=== PATIENT | female | born 1935 | race Caucasian/White ===

== ENCOUNTER 2023-09-25 15:02 | Emergency (ER) | payer MEDICARE, SELFPAY ==
--- NOTE | ~2023-09-25 | XR_ITS ---
EXAMINATION: XR CHEST CLINICAL INFORMATION: Cough. COMPARISON: None available. TECHNIQUE: Frontal view of the chest was obtained. FINDINGS: The trachea is in normal anatomic position. Heart size is normal. There is calcific atherosclerotic disease of the aorta. There are bibasilar airspace opacities. There are increased interstitial markings throughout both lungs. No large pleural effusion or pneumothorax. No acute osseous abnormality. XR/XR chest 1V IMPRESSION: There are bibasilar opacities representing either atelectasis or pneumonia.
[2023-09-25 15:59] VITALS: BP 133/44; BP 140/50; PULSE 60; PULSE 61; RESP 18; TEMP 36.6; O2SAT 94; O2SAT 98; BMI 19.9
--- NOTE | 2023-09-25 16:17 | ED.URI ---
HPI - URI/Sore Throat General Chief Complaint: Upper Respiratory Symptoms Stated Complaint: COUGH X1 WEEK,DIARRHEA PER EMS Time Seen by Provider: 09/25/23 16:15 Source: patient Mode of arrival: EMS Limitations: altered mental status (Dementia) History of Present Illness HPI Narrative: 88-year-old female with a history of hypertension and dementia who lacks insight as to why she is here in the emergency department. According to the triage nursing note the patient was sent in from her nursing facility for evaluation of a productive cough x1 week and flu-like symptoms. Patient was negative for COVID at the facility. The facility also wants the patient to be evaluated for a month on her back. Patient is awake and alert, she was oriented to person but was not able to give me any information about how she has been feeling over the past week. Related Data Previous Rx's Medication Instructions Recorded amoxicillin 500 mg capsule 1,000 mg (2 x 500 mg) PO TID 5 09/25/23 days #30 caps doxycycline hyclate 100 mg tablet 100 mg PO Q12H 5 days #10 tabs 09/25/23 Allergies Allergy/AdvReac Type Severity Reaction Status Date / Time No Known Allergies Allergy Verified 09/25/23 15:59 Review of Systems Review of Systems: Yes Unobtainable due to mental status (Dementia) [facility] Past Medical History [facility] Narrative: Social history: Patient is a resident of [facility] in [place]. Social History Social History Unable to assess alcohol history related to: Unknown Smoked in Last 30 Days: No Use of substances other than those prescribed or required for medical reasons: No Advance Directives: No Advance Directives Information Provided: No Physical Exam Vital Signs: Vital Signs: Last Vital Signs Temp 98.3 F 09/25/23 16:50 Pulse 58 09/25/23 16:50 Resp 16 09/25/23 16:50 BP 138/49 L 09/25/23 16:50 Pulse Ox 98 09/25/23 16:50 O2 Del Method Room Air 09/25/23 16:50 BMI result Body Mass Index 19.9 Vital signs revealed low heart rate of 58 otherwise unremarkable and O2 saturation was 98% Exam: General: Awake, alert in no distress Head: Normocephalic, atraumatic EENT: PERRL, Lids normal, sclera normal, conjunctiva normal, nose normal , ears normal, throat without erythema or exudates Neck: Supple, no adenopathy Lung: breath sounds symmetric, no wheezing, rales or rhonchi Chest: symmetric movement, nontender Heart: regular rate and rhythm, normal S1, S2 no murmurs or rubs Abdomen: soft, non-tender, nondistended, normal bowel sounds Back: no vertebral tenderness, no CVAT Extremities: no deformities, moves all extremities symmetrically Skin: no rashes, no lesion, normal color and warmth Neuro: Awake, alert, oriented, normal speech, cranial nerves intact, moves all extremities symmetrically Psych: Pleasant, cooperative, does try to get off the stretcher and needs a one-to-one to redirect her keep her on the stretcher. Medical Decision Making Medical Decision Making [facility] Narrative: 88-year-old female with a history of hypertension and dementia who lacks insight as to why she is here in the emergency department sent from her facility for evaluation of cough x1 week and lump to her back. Vital signs were unremarkable with normal O2 saturation of 98% on room air. Her lung exam was unremarkable. Patient's lump on her back is consistent with a lipoma. Differential diagnosis: ?Includes but is not limited to pneumonia, bronchitis, viral URI, viral infection, COVID, RSV, influenza Following evaluation was ordered: Chest x-ray, COVID-19, influenza, RSV Patient was initially treated with the following: Amoxicillin 1000 mg orally, doxycycline 5 mg orally Course: 18:43 Patient's COVID-19, influenza, RSV Dictation patient's chest x-ray is increased interstitial markings with right lower lobe infiltrate consistent with atypical pneumonia. Patient will be treated with amoxicillin 1000 mg 3 times a day for 5 days and doxycycline 100 mg twice a day for 5 days. Patient needs no treatment for her lipoma. Patient will be discharged back to her care facility Admission/Observation Consideration of admission/observation: Escalation of care including admission/observation considered Lab Data [facility] Lab Attestation statement: I reviewed the patient's lab results. Labs: Lab Results 09/25/23 Range/Units 16:05 Influenza Type A (PCR) NEGATIVE (Negative) Influenza Type B (PCR) NEGATIVE (Negative) RSV RNA Qual (PCR) NEGATIVE (Negative) SARS-CoV-2 RNA (RT-PCR) NEGATIVE (Negative) Independent Interpretation I performed an independent interpretation of an: Plain X-Ray Interpretation: My interpretation patient's one-view chest x-ray is as follows: Increased interstitial markings bilaterally with right lower lobe infiltrate consistent with atypical pneumonia. Discharge Plan Discharge Clinical Impression: Atypical pneumonia Patient Disposition: Home, Self-Care Instructions: Community Acquired Pneumonia (ED), Lipoma (ED) Additional Instructions: Your COVID-19, influenza and RSV swabs were neck Your chest x-ray revealed increased interstitial infiltrates and possible infiltrate in the lower lung which is consistent with an atypical pneumonia Take amoxicillin 500 mg pills, 2 pills, every 6 hours (3 times a day) for 5 days. Take doxycycline 100 mg, 1 pill every 12 hours for 5 days The lump on your left lower back is a lipoma-this is a collection of fat and does not need any treatment Follow-up with your doctor in 2 days. Please return to the emergency department if your symptoms get worse or if you develop any symptoms that are concerning to you. Prescriptions: New amoxicillin 500 mg capsule 1,000 mg PO TID 5 Days Qty: 30 0RF doxycycline hyclate 100 mg tablet 100 mg PO Q12H 5 Days Qty: 10 0RF
[2023-09-25 16:47] LABS: Influenza A PCR NEGATIVE (Negative); Influenza B PCR NEGATIVE (Negative); Resp Syncy Virus RNA Qual PCR NEGATIVE (Negative); SARS COV2 PCR INHOUSE NEGATIVE (Negative)
--- NOTE | 2023-09-25 16:49 | PC.NURSE ---
pt alert to self only, vss, nasal swab performed, cxr to be performed, pt denies pain/discomfort- warm blankets and pillow provided for patient comfort, call davis within reach, will continue to monitor
[2023-09-25 16:50] VITALS: BP 138/49; PULSE 58; RESP 16; TEMP 36.8; O2SAT 98
--- NOTE | 2023-09-25 18:11 | PC.NURSE ---
this nurse called [facility] to give nurse to nurse report. The person who answered the phone (Shahnaz) stated there wasn't a nurse to give report to and they would let the floors RCAs know and we should eventually get a call back.
--- NOTE | 2023-09-25 18:18 | PC.NURSE ---
RN call back an RN called back, this nurse updated her and notified them that the patient would eventually discharge back to their facility- full report was given.
[2023-09-25] MEDS: Amoxicillin 500 MG CAPSULE 1000 MG PO (18:34)
[2023-09-25] MEDS: Doxycycline Monohydrate 100 MG CAPSULE PO (18:34)
[2023-09-25] MEDS: traZODone HCL 25 MG HALFTAB PO (18:35)
== END 2023-09-25 19:35 | disposition home or self-care (01) ==
PROVIDERS: Physician Assistant; Emergency Provider Emergency Medicine Emergency Medical Services
DX: J18.9 Pneumonia, unspecified organism (principal); I10 Essential (primary) hypertension; F03.90 Unspecified dementia, unspecified severity, without behavioral disturbance, psychotic disturbance, mood disturbance, and anxiety; Z11.52 Encounter for screening for COVID-19; Z20.828 Contact with and (suspected) exposure to other viral communicable diseases
CPT/HCPCS: 0241U; 71045; 99283; 99284

== ENCOUNTER 2023-09-30 13:16 | Emergency (ER) | payer MEDICARE, SELFPAY ==
--- NOTE | ~2023-09-30 | XR_ITS ---
EXAMINATION: XR CHEST CLINICAL INFORMATION: Cough. COMPARISON: Chest 09/25/2023 TECHNIQUE: Frontal view of the chest was obtained. FINDINGS: The lungs are somewhat expanded with patchy bibasilar opacities likely infiltrate and/or atelectasis. The upper lungs are relatively clear except for minimal atelectatic stranding left apex. Heart size and pulmonary vascularity is normal. No gross bony abnormality seen. XR/XR chest 1V IMPRESSION: 1. Patchy bibasilar opacities likely infiltrate and/or atelectasis. Similar findings were seen on previous study 09/25/2023. Consider noncontrast CT chest. 2. Minimal atelectatic stranding left apex.
--- NOTE | 2023-09-30 13:40 | ED.SOB ---
HPI - SOB/Dyspnea General Chief Complaint: General Medical Stated Complaint: LOW 02, NO APPETITE Source: patient, EMS and old records reviewed Mode of arrival: EMS Limitations: other (dementia) History of Present Illness HPI Narrative: 88 yo female with PMH of dementia and HTN from a memory unit just seen here CXR showed RLL infiltrate negative viral panel 98% on RA sent home on amoxicillin and doxycycline. She comes back here with c/o nothing. She states she is fine and feels okay other than asking for a blanket. Staff told EMS they thought she was confused more so today and her O2 was 90%. EMS suspects they read it wrong as her pulse ox was 90% and HR 95 and EMS obtained 95% on RA and 85-90 HR which was the opposite. She has not exhibitied dyspnea and has no complaints on arrival. MD elicited complaint: anxiety (a little nervous being here now) Pertinent past history: pneumonia Onset (ago): day(s) (feels better has no complaints) Context: recent illness Timing: now resolved Exacerbating factors: nothing Relieving factors: nothing Known history of: other Associated symptoms: denies other symptoms Treatment prior to arrival: none Related Data Previous Rx's Medication Instructions Recorded amoxicillin 500 mg capsule 1,000 mg (2 x 500 mg) PO TID 5 09/25/23 days #30 caps doxycycline hyclate 100 mg tablet 100 mg PO Q12H 5 days #10 tabs 09/25/23 Allergies Allergy/AdvReac Type Severity Reaction Status Date / Time No Known Allergies Allergy Verified 09/25/23 15:59 Review of Systems Review of Systems: ROS unable to be obtained due to cognitive impairment [facility] Past Medical History Attestation statement: The following information was validated with the patient. Source: old records reviewed Medical History Dementia HTN (hypertension) Social History Social History (Updated 09/30/23 @ 13:51 by Sherry Jackson DO) Unable to assess alcohol history related to: Unknown Patient Tobacco Use Status: Tobacco use Unknown Advance Directives: No Advance Directives Information Provided: Yes Physical Exam Vital Signs: Vital Signs: Last Vital Signs Temp 97.0 F 09/30/23 15:44 Pulse 58 09/30/23 15:44 Resp 16 09/30/23 15:44 BP 128/51 L 09/30/23 15:44 Pulse Ox 97 09/30/23 15:44 O2 Del Method Room Air 09/30/23 15:44 BMI result Body Mass Index 22.9 Appearance: Alert. confused but pleasant. No acute distress. Eyes: Pupils equal, round and reactive to light. ENT: Pharynx normal. Neck: Normal inspection. Neck supple. CVS: Normal heart rate and rhythm. Pulses normal. Respiratory: No respiratory distress. Breath sounds normal. Abdomen: Soft and non-tender. Skin: Skin warm and dry. Normal skin color. Normal skin turgor. Extremities: No lower extremity edema. No calf ttp Neuro: confused. No motor deficit. No sensory deficit. Medical Decision Making Medical Decision Making [facility] Narrative: 88 yo female with PMH of HTN, DM, recent RLL on sent out on amoxicillin and doxy she has no complaints EMS called for confusion and sat 90% but she was not hypoxic with them and concern for error mixing up HR and O2 sat at SNF. At this time she is not toxic, no complaints, no resp issues will need basic labs and repeat CXR. She has no focal deficits, no headaches, no abdominal pain on exam. Differential Diagnosis Differential Diagnoses: The differential diagnosis associated with the presentation includes dementia, error in pulse ox read, pneumonia Admission/Observation Consideration of admission/observation: Escalation of care including admission/observation considered labs reassuring VS stable, no hypoxia, can be DC home Lab Data [facility] Lab Attestation statement: I reviewed the patient's lab results. 09/30/23 15:38 09/30/23 15:38 Labs: Lab Results 09/30/23 Range/Units 15:38 WBC 8.1 (4.8-10.8) X10*3/uL RBC 3.79 L (4.20-5.50) X10*6/uL Hgb 11.1 L (12.0-16.0) g/dl Hct 33.6 L (37.0-47.0) % MCV 88.7 (80.0-98.0) fL MCH 29.3 (27.0-33.0) pg MCHC 33.0 (31.0-35.0) g/dl RDW 12.9 (11.0-16.0) % Plt Count 440 H (160-400) X10*3/uL MPV 9.2 L (9.4-12.3) fL Immature Gran % (Auto) 2.6 H (0.0-0.4) % Neut % (Auto) 63.5 (45-73) % Lymph % (Auto) 19.0 L (20-40) % Jerome % (Auto) 8.9 (2-11) % Eos % (Auto) 5.1 H (0-4) % Baso % (Auto) 0.9 (0-2) % Lymph # (Auto) 1.5 (1.2-4.9) X10*3/uL Jerome # (Auto) 0.7 (0.1-1.2) X10*3/uL Eos # (Auto) 0.4 (0.0-0.4) X10*3/uL Baso # (Auto) 0.1 (0.0-0.2) X10*3/uL Abs Immat Gran (auto) 0.21 H (0.00-0.03) X10*3/uL Absolute Neuts (auto) 5.1 (2.0-8.3) x10*3/uL Absolute Nucleated RBC 0.000 (0.0-0.012) X10*3/uL Nucleated RBC % (auto) 0.0 (0.0-0.2) /100WBC Sodium 141 (135-145) mmol/L Potassium 3.4 (3.3-5.1) mmol/L Chloride 106 (96-108) mmol/L Carbon Dioxide 26 (22-29) mmol/L Anion Gap 12 (12-20) BUN 16 (9-16) mg/dL Creatinine 0.82 (0.5-1.4) mg/dL Estim Creat Clear Calc 35.8 Estimated GFR > 60 Random Glucose 87 (60-115) mg/dL Calcium 9.3 (8.4-10.2) mg/dL Independent Interpretation I performed an independent interpretation of an: Plain X-Ray (no worsening findings) Radiology Impression Discussion of test interpretation with radiology: I have reviewed the radiologist's reading. Independent Historian Clinical information obtained from an independent historian. History obtained from or confirmed by: EMS External Record Review External record reviewed: Inpatient record Discharge Plan Discharge Clinical Impression: Anemia, mild Patient Disposition: Home, Self-Care Instructions: Anemia (ED) Additional Instructions: chest xray is similar no elevated white blood cell count mild anemia hemoglobin 11.1 repeat CBC in 48 hours normal metabolic panel chest xray not worse would repeat in 3 weeks to ensure resolution saturations > 95% while she was in ED and with EMS return for any worsening symptoms and concerns, complete antibiotic course Prescriptions: No Action amoxicillin 500 mg capsule 1,000 mg PO TID 5 Days Qty: 30 0RF doxycycline hyclate 100 mg tablet 100 mg PO Q12H 5 Days Qty: 10 0RF
[2023-09-30 14:12] VITALS: BP 135/61; BP 98/41; PULSE 58; PULSE 78; RESP 16; TEMP 36.4; O2SAT 96; O2SAT 98; BMI 22.9
--- NOTE | 2023-09-30 14:33 | PC.NURSE ---
pt BIBA for sob and increased confusion per nursing facility. pt presented confused, yelling at staff while taking vitals, changing over, and taking labs. pt attempted to get out of bed, was non redirectable. 1:1 sitter now at bedside. pt does not appear to be in any distress, rr even/unlabored. plan of care ongoing.
[2023-09-30 15:41] LABS: MANUAL DIFF FLAG NO
[2023-09-30 15:44] VITALS: BP 128/51; PULSE 58; RESP 16; TEMP 36.1; O2SAT 97
--- NOTE | 2023-09-30 15:45 | MHC.EDTECH ---
This pct assumed care of patient at 1500 ,vitals taken ,blood drawn and sent to lab ,Patient was change into hospital attire ,Patient is very agitated and combative with care ,Patient Observer at bedside .
[2023-09-30 15:49] LABS: Basophils Absolute Auto 0.1 X10*3/uL (0.0-0.2); Basophils Percent Auto 0.9 % (0-2); Eosinophils Absolute Auto 0.4 X10*3/uL (0.0-0.4); Eosinophils Percent Auto 5.1 % (0-4); Hematocrit 33.6 % (37.0-47.0); Hemoglobin 11.1 g/dl (12.0-16.0); Imm Gran Abs Auto 0.21 X10*3/uL (0.00-0.03); Imm Gran Pct Auto 2.6 % (0.0-0.4); Lymphocytes Absolute Auto 1.5 X10*3/uL (1.2-4.9); Mean Corpuscular Hemoglobin 29.3 pg (27.0-33.0); Mean Corpuscular Volume 88.7 fL (80.0-98.0); Mean Platelet Volume 9.2 fL (9.4-12.3); Monocytes Absolute Auto 0.7 X10*3/uL (0.1-1.2); Monocytes Percent Auto 8.9 % (2-11); Neutrophils Absolute Auto 5.1 x10*3/uL (2.0-8.3); Neutrophils Percent Auto 63.5 % (45-73); Platelet Count 440 X10*3/uL (160-400); Red Blood Count 3.79 X10*6/uL (4.20-5.50); Red Cell Distribution Width 12.9 % (11.0-16.0); White Blood Count 8.1 X10*3/uL (4.8-10.8)
[2023-09-30 16:03] LABS: Anion Gap 12 (12-20); Blood Urea Nitrogen 16 mg/dL (9-16); Calcium 9.3 mg/dL (8.4-10.2); Carbon Dioxide 26 mmol/L (22-29); Chloride 106 mmol/L (96-108); Creatinine Clr Calc Pharmacy 35.8; Estimated Glomerular Filt Rate > 60; Glucose Random 87 mg/dL (60-115); Potassium 3.4 mmol/L (3.3-5.1); Sodium 141 mmol/L (135-145)
[2023-09-30 17:13] LABS: COVID-19 Test Negative (Negative); IDNOW Serial# 08D9AD1C; IDNOW Serial# 152EDE1D; Influenza A Negative (Negative); Influenza B2 Negative (Negative)
[2023-09-30 17:21] VITALS: BP 101/78; PULSE 58; RESP 16; TEMP 36.4; O2SAT 97
--- NOTE | 2023-09-30 17:37 | PC.NURSE ---
pt up for discharge. ambulance scheduled for 1899 back to nursing facility.
--- NOTE | 2023-09-30 19:10 | PC.NURSE ---
called nursing facility to give report, sent to voicemail. report given to RYLAND Woodward. awaiting EMS transport.
== END 2023-09-30 19:30 | disposition home or self-care (01) ==
PROVIDERS: Emergency Provider Emergency Medicine; PCP Internal Medicine
DX: D64.9 Anemia, unspecified (principal); R06.02 Shortness of breath; F41.1 Generalized anxiety disorder; F43.0 Acute stress reaction; Z79.899 Other long term (current) drug therapy; Z11.52 Encounter for screening for COVID-19
CPT/HCPCS: 36415; 71045; 80048; 85025; 87502; 87635; 99283; 99284